=== PATIENT | female | born 2000 | race Caucasian/White ===

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

== ENCOUNTER 2020-02-20 15:42 | Emergency (ER) | payer OTHER, SELFPAY ==
[2020-02-20 15:45] VITALS: BP 135/86; PULSE 123; RESP 24; TEMP 37.8; O2SAT 100
--- NOTE | 2020-02-20 16:21 | CT_ITS ---
PROCEDURE: CT ABDOMEN PELVIS WO CON CLINICAL INDICATION: N/V/D ABD PAIN Generalized abdominal pain with nausea and vomiting COMPARISON: CT ABDOMEN PELVIS W CON from 12/28/2019 TECHNIQUE: Axial images obtained with sagittal and coronal reformats. All CT scans at the facility use one or more dose reduction, viz: automated exposure control, ma/kV adjustment per patient size (including targeted exams where dose is matched to indication, i.e. head), or iterative reconstruction technique. FINDINGS: LOWER THORAX: There is mild thickening of the pericardium anteriorly ABDOMEN & PELVIS: The liver, spleen, adrenal glands, pancreas, have an unremarkable appearance. There are nonobstructing punctate bilateral renal calculi. No intestinal obstruction or free air. Unremarkable appendix. There is an IUD in place. There is a small amount of fluid in the pelvis There is some mild thickening of the transverse and descending colon with minimal haziness of the pericolic fat in the left pericolic gutter which could be due to mild colitis. No intestinal obstruction or free air. There are few scattered small mesenteric lymph nodes which are nonspecific. There is a tiny umbilical hernia containing fat. IMPRESSION: 1. Nonobstructing bilateral renal calculi. 2. Possible colitis. There is a small amount of fluid in the pelvis nonspecific Dictated by: Elvis Gates MD 02/20/2020 17:36 Electronically signed by Elvis Gates MD in [place] 02/20/2020 17:36
[2020-02-20 16:38] LABS: Microscopic, Urine URINE MICROSCOPIC (MICROSCOPIC)
[2020-02-20 16:41] LABS: Appearance,Urine CLEAR (Clear); Bilirubin,Urine Negative (Negative); Blood, Urine 2+ (Negative); Color,Urine YELLOW (Yellow); Glucose,Urine (UA) Negative (Negative); Ketones,Urine Negative (Negative); Leukocyte Esterase,Urine Negative (Negative); Nitrate,Urine Negative (Negative); Protein,Urine TRACE (Negative); Specific Gravity, Urine 1.025 (1.005-1.030); Urobilinogen,Urine 0.2 EU/dl (0.2)
[2020-02-20 16:44] LABS: Basophils % 0.5 % (0.1-2.0); Eosinophils # 0.1 K/mm3 (0.0-0.4); Eosinophils % 0.8 % (0.1-12.0); Hematocrit 44.4 % (37.0-47.0); Hemoglobin 15.6 g/dL (12.2-16.2); Lymphocytes # 1.8 K/mm3 (0.7-4.5); Lymphocytes % 27.7 % (10-50); Mean Corpuscular HGB Conc 35.1 g/dL (31.8-35.4); Mean Corpuscular Hemoglobin 31.1 pg (27.0-31.2); Mean Corpuscular Volume 88.5 fl (81-99); Mean Platelet Volume 7.6 fl (7.4-10.4); Monocytes # 0.6 K/mm3 (0.1-1.0); Monocytes % 9.7 % (1.7-9.3); Neutrophils % 61.3 % (37.0-80.0); Platelet Count 271 K/mm3 (142-424); Red Blood Count 5.02 M/mm3 (4.20-5.40); Red Cell Distribution Width 12.3 % (11.5-17.5); White Blood Count 6.5 K/mm3 (4.5-13.0)
[2020-02-20 16:47] LABS: Urine Pregnancy, HCG Qual. Negative (Negative)
[2020-02-20 16:48] LABS: Chloride 104 mmol/L (98-107)
[2020-02-20 16:49] LABS: Potassium 3.6 mmoL/L (3.5-5.1); Sodium 138 mmol/L (136-145)
[2020-02-20 16:51] LABS: Amylase 56 U/L (30-110); Blood Urea Nitrogen 6 mg/dl (7-17); Creatinine Clearance Estimated 142 mL/min (50-200); Estimated Glomerular Filt Rate 92 ml/min (>60); GFR (African American) 112 ML/MIN (>60)
[2020-02-20 16:52] LABS: Alanine Aminotransferase 25 U/L (12-78); Albumin/Globulin Ratio 1.3 (1.1-1.8); Alkaline Phosphatase 101 U/L (38-126); Anion Gap 10.6 mEq/L (5-15); Aspartate Amino Transferase 26 U/L (14-36); Bilirubin,Total 0.5 mg/dl (0.2-1.3); Calcium 9.4 mg/dl (8.4-10.2); Carbon Dioxide 27 mmol/L (22.0-30.0); Glucose 90 mg/dl (74-100); Lipase 40 U/L (23-300)
--- NOTE | 2020-02-20 16:59 | PC.NURSE ---
PT TO RAD
[2020-02-20 17:04] LABS: Bacteria,Urine Trace /lpf; WBC,Urine Occasional #/hpf (0-3)
--- NOTE | 2020-02-20 18:01 | HMH.EDNVD ---
ED Disposition Clinical Impression: Gastroenteritis, Colitis Disposition: Home, Self-Care Condition on Discharge: Good Instructions: DI for Nausea -- Adult, DI for Nausea -- Child, DI for Diarrhea and Traveler's Diarrhea -- Adult, DI for Diarrhea and Traveler's Diarrhea -- Child Prescriptions: Ciprofloxacin HCl [Cipro 500mg Tab] 500 mg PO BID 10 Days #20 tab Transmission Status: Pending to [facility] metroNIDAZOLE [Flagyl 500mg Tablet] 500 mg PO TID 10 Days #30 tab Transmission Status: Pending to [facility] 493 Ondansetron [Zofran 4mg ODT] 4 mg PO Q6 #20 tab.rapdis Transmission Status: Pending to [facility] Referrals: Poonam Reynoso PA [Primary Care Provider] - - Critical Care Critical Care Time: No Attestation: On 02/20/20, the high probability of a clinically significant, sudden or life threatening deterioration of the following system(s) required my full and direct attention, intervention and personal management. The time I documented below is in addition to time spent performing reported procedures but includes the following listed in this critical care notation. Medical Decision Making - Medical Records Medical records reviewed: Yes: I reviewed the patient's medical records. - Walt Inquiry Pt receiving controlled substance: No Vital Signs: 02/20/20 15:45 Temperature 100.0 F H Temperature Source Oral Pulse Rate [Right Radial] 123 H Respiratory Rate 24 Blood Pressure [Right Arm] 135/86 Blood Pressure Mean [Right Arm] 102 Blood Pressure Source [Right Arm] Automatic Cuff Blood Pressure Position [Right Arm] Sitting 02 Sat by Pulse Oximetry 100 Oxygen Delivery Method Room Air - Lab Data Lab results reviewed: Yes: I reviewed the patient's lab results. Lab Results 02/20/20 16:10: Urine Color Yellow, Urine Appearance Clear, Urine pH 6.0, Ur Specific [place] 1.025, Urine Protein Trace, Urine Glucose (UA) Negative, Urine Ketones Negative, Urine Blood 2+, Urine Nitrate Negative, Urine Bilirubin Negative, Urine Urobilinogen 0.2, Ur Leukocyte Esterase Negative, Urine WBC Occasional, Ur Squamous Epith Cells 3-5, Urine Bacteria Trace 02/20/20 16:10: Urine HCG, Qual Negative 02/20/20 16:30: WBC 6.5, RBC 5.02, Hgb 15.6, Hct 44.4, MCV 88.5, MCH 31.1, MCHC 35.1, RDW 12.3, Plt Count 271, MPV 7.6, Neut % (Auto) 61.3, Lymph % (Auto) 27.7, [place] % (Auto) 9.7 H, Eos % (Auto) 0.8, Baso % (Auto) 0.5, Neut # (Auto) 4.0, Lymph # (Auto) 1.8, [place] # (Auto) 0.6, Eos # (Auto) 0.1, Baso # (Auto) 0.0 02/20/20 16:30: Sodium 138, Potassium 3.6, Chloride 104, Carbon Dioxide 27, Anion Gap 10.6, BUN 6 L, Creatinine 0.80, Estimated Creat Clear 142, Estimated GFR 92, Est GFR ( Amer) 112, Glucose 90, Calcium 9.4, Total Bilirubin 0.5, AST 26, ALT 25, Alkaline Phosphatase 101, Total Protein 7.0, Albumin 4.0, Globulin 3.0, Albumin/Globulin Ratio 1.3, Amylase 56, Lipase 40 Result diagrams: 02/20/20 16:30 02/20/20 16:30 Orders (Tests/Meds): ED MEDICATIONS Discontinued Medications Generic Name Dose Route Start Last Admin Trade Name Freq PRN Reason Stop Dose Admin Sodium Chloride 1,000 mls @ 999 mls/hr 02/20/20 16:22 02/20/20 16:34 Sod Chlor 0.9% 1000ml Bag IV 02/20/20 17:22 999 mls/hr .Q1H1M ONE Administration Ondansetron HCl 4 mg 02/20/20 17:34 02/20/20 17:37 Zofran 4mg/2ml Vial IV 02/20/20 17:35 4 mg ONCE ONE Administration - CT Data CT Scan: Abdomen, Pelvis Time Received: 18:[address] Reviewed: Yes: I have viewed the radiologist's interpretation Preliminary Findings: Abnormal (Mild colitis) Nausea/Vomiting/Diarrhea HPI - General Chief complaint: Nausea/Vomiting/Diarrhea Stated complaint: Fever,Nausa,vomiting body pains Time Seen by Provider: 02/20/20 18:01 Mode of Arrival: Ambulatory Source of Information: Patient Limitations: No Limitations Description of Symptoms (Recalled from ER Triage Doc. by RN): PT SENT TO ED FROM [facility]
[2020-02-20 18:29] VITALS: BP 118/78; PULSE 102; RESP 20; TEMP 37.8; O2SAT 100
== END 2020-02-20 18:29 | disposition home or self-care (01) ==
PROVIDERS: Emergency Provider Family Medicine; PCP Physician Assistant
DX: K52.9 Noninfective gastroenteritis and colitis, unspecified (principal); F33.1 Major depressive disorder, recurrent, moderate; M79.7 Fibromyalgia; Z79.899 Other long term (current) drug therapy
CPT/HCPCS: 74176; 80053; 81001; 81025; 82150; 83690; 85025; 96365; 96375; 99283; J2405

== ENCOUNTER → 2020-03-18 20:00 | Outpatient (CLI) | payer OTHER, SELFPAY ==
[2020-03-19 09:55] LABS: Adenovirus F 40/41, stool Not Detected (NotDetected); Astrovirus Not Detected (NotDetected); Campylobacter Not Detected (NotDetected); Cryptosporidium Not Detected (NotDetected); Cyclospora Cayetanesis Not Detected (NotDetected); Entamoeba histolytica Not Detected (NotDetected); Enteroaggregative E coli Not Detected (NotDetected); Enteropathogenic E coli Not Detected (NotDetected); Enterotoxigenic E coli Not Detected (NotDetected); Giardia lamblia Not Detected (NotDetected); Norovirus Not Detected (NotDetected); Plesimonas Shigalloides, PCR Not Detected (NotDetected); Rotavirus A Not Detected (NotDetected); Sapovirus Not Detected (NotDetected); Shiga-like toxin E coli Not Detected (NotDetected); Shigella Enterovasive E coli Not Detected (NotDetected); Vibrio Cholerae Not Detected (NotDetected); Vibrio, PCR Not Detected (NotDetected); Yersinia Entercolitica, PCR Not Detected (NotDetected)
[2020-03-19 13:55] LABS: Occult Blood,Stool Positive (Negative)
[2020-03-19 17:52] LABS: Clostridium Difficile A/B, PCR Detected (NotDetected)
[2020-03-19 17:53] LABS: Salmonella, PCR Detected (NotDetected)
== END ==
PROVIDERS: Visit Provider Physician Assistant
DX: R19.7 Diarrhea, unspecified (principal); A04.72 Enterocolitis due to Clostridium difficile, not specified as recurrent; K92.1 Melena; A02.0 Salmonella enteritis
CPT/HCPCS: 82272; 87177; 87507; G0328

== ENCOUNTER 2020-05-11 09:03 | Emergency (ER) | payer OTHER, SELFPAY ==
[2020-05-11 09:14] VITALS: BP 141/93; PULSE 101; RESP 18; O2SAT 100; BMI 30.9
--- NOTE | 2020-05-11 09:24 | HMH.EDUTC ---
[facility] [place] Clinical Impression: UTI (urinary tract infection) Qualifiers: Urinary tract infection type: acute cystitis Hematuria presence: with hematuria Qualified Code(s): N30.01 - Acute cystitis with hematuria Disposition: Home, Self-Care Condition on Discharge: Good Instructions: DI for Urinary Tract Infection (UTI) Additional Instructions: Follow up with PCP for culture results and referral to urology Prescriptions: Ciprofloxacin HCl [Cipro 500mg Tab] 500 mg PO BID #10 tab Transmission Status: Received by [facility] Phenazopyridine HCl [Pyridium 200mg Tablet] 200 pow PO TID #6 tab Transmission Status: Received by [facility] Referrals: Poonam Reynoso PA [Primary Care Provider] - Time of Disposition: 10:13 Medical Decision Making - Walt Inquiry Pt receiving controlled substance: No Vital Signs: 05/11/20 09:14 Pulse Rate [Radial] 101 H Respiratory Rate 18 Blood Pressure [Right Arm] 141/93 H Blood Pressure Mean [Right Arm] 109 Blood Pressure Source [Right Arm] Automatic Cuff Blood Pressure Position [Right Arm] Sitting 02 Sat by Pulse Oximetry 100 Oxygen Delivery Method Room Air - Lab Data Lab results reviewed: Yes: I reviewed the patient's lab results. Orders (Tests/Meds): ED MEDICATIONS Discontinued Medications Generic Name Dose Route Start Last Admin Trade Name Francine PRN Reason Stop Dose Admin Ketorolac Tromethamine 60 mg 05/11/20 09:30 05/11/20 09:30 Toradol 60mg/2ml Vial IM 05/11/20 09:31 60 mg ONCE ONE Administration Medical Decision Narrative: Discharge delayed because patient gave second sample to be sent for culture [facility] - General Stated complaint: lower bck pain nausa Time Seen by Provider: 05/11/20 09:24 Mode of Arrival: Ambulatory Source of Information: Patient Limitations: No Limitations Description of Symptoms (Recalled from Triage Doc. by RN): lower back pain since this morning. Think it is her kidneys. HEENT Symptoms (Recalled from RN notes): No Resp Symptoms (Recalled from RN notes): No Skin Symptoms (Recalled from RN notes): No MS Symptoms (Recalled from RN notes): No Functional Status (Recalled from RN notes): wnl - History of Present Illness Provider Complaint: Woke up this am with severe bilateral flank pain, nausea. No fever. Has urinary frequency, dysuria, and small volumes dark cloudy urine. No history of kidney stone. No history of pyelonephritis. Has taken Ibuprofen with little relief. Onset (ago): hour(s) (4) Location: back, abdomen, pelvis Radiation: abdomen Severity: moderate Severity scale (1-10): 7 Quality: constant Consistency: constant Relieving factors: none Exacerbating factors: none Associated symptoms: denies other symptoms Treatments prior to arrival: NSAID - Related Data Previous Rx's Medication Instructions Recorded amitriptyline 25 mg tablet 25 mg PO QHS #90 tab 02/05/20 duloxetine 60 mg capsule,delayed 60 mg PO DAILY #90 cap 03/12/20 release Bifidobacterium infantis 4 mg 4 mg PO QHS #30 cap 03/20/20 capsule promethazine 12.5 mg tablet 12.5 mg PO Q6H PRN #40 tab 03/20/20 sulfamethoxazole 800 1 tab PO BID 10 Days #20 tab 03/20/20 mg-trimethoprim 160 mg tablet vancomycin 125 mg capsule 125 mg PO QID #40 cap 03/20/20 fidaxomicin 200 mg tablet 200 mg PO Q12H 10 Days #20 tab 03/27/20 Ciprofloxacin HCl [Cipro 500mg 500 mg PO BID #10 tab 05/11/20 Tab] Phenazopyridine HCl [Pyridium 200 pow PO TID #6 tab 05/11/20 200mg Tablet] Allergies Allergy/AdvReac Type Severity Reaction Status Date / Time No Known Allergies Allergy Verified 03/18/20 12:55 - Worker's Comp Is this a Worker's Comp case?: No [facility] History - Hepatitis A Screen Drug use history?: No High risk sexual behaviors?: No History of sexually transmitted infection?: No Currently employed?: No Childcare worker?: No Do you have indoor plumbing?: Yes Do you have electricity?: Ye
[2020-05-11 10:21] VITALS: BP 141/93; PULSE 101; RESP 18; TEMP 36.7; O2SAT 100
[2020-05-11 10:45] LABS: Apearance,Urine Clear (Clear); Bilirubin,Urine 2+ (Negative); Blood, Urine 3+ (Negative); Color,Urine Yellow (Yellow); Glucose,Urine (UA) Negative (Negative); Ketones,Urine TRACE (Negative); Protein,Urine 1+ (Negative); UTC Leukocyte Esterase,Urine Negative (Negative); UTC Nitrate,Urine Negative (Negative); Urobilinogen,Urine 0.2 EU/dl (0.2)
== END 2020-05-11 10:22 | disposition home or self-care (01) ==
PROVIDERS: Emergency Provider Physician Assistant; PCP Physician Assistant
DX: N30.01 Acute cystitis with hematuria (principal); M79.7 Fibromyalgia; F33.1 Major depressive disorder, recurrent, moderate
CPT/HCPCS: 81003; 87086; 96372; 99202

== ENCOUNTER → 2020-06-08 12:06 | Outpatient (CLI) | payer OTHER, SELFPAY ==
[2020-06-08 14:05] LABS: Coronavirus 19 IgG Antibody Negative (Negative); Coronavirus 19 IgM Antibody Negative (Negative)
== END ==
PROVIDERS: Visit Provider Urology
DX: Z01.818 Encounter for other preprocedural examination (principal); N39.0 Urinary tract infection, site not specified; R31.0 Gross hematuria
CPT/HCPCS: 36415; 86328

== ENCOUNTER 2020-06-10 09:12 | Day surgery (SDC) | payer OTHER, SELFPAY ==
[2020-06-07 16:03] VITALS: BMI 30.4
[2020-06-10] VITALS (10 sets, daily range): BP systolic 99–125; BP diastolic 60–78; PULSE 99–113; RESP 12–16; TEMP 36.7–43; O2SAT 90–100
[2020-06-10 09:53] LABS: Urine Pregnancy, HCG Qual. Negative (Negative)
--- NOTE | 2020-06-10 10:38 | P.PN_ITS ---
[facility] Anesthesia Checklist - Structural Data Admitted From: Home Planned Operative Procedure/s: cysto Consent for Planned Operative Procedure(s) Verified: Yes - Additional verifications Hx Blood Transfusions: No Blood Transfusion Reaction: No - Airway Assessment C-Spine Mobility Assessed: Yes TMJ Mobility Assessed: Yes Dentition: Good Dentition - Neurological Assessment Level of Consciousness: Awake, Alert, Appropriate - Anesthesia Plan Anesthesia Risk discussed: Yes Anesthesia Plan: Verified ASA Class: I Anesthesia Type: General [facility] History I have reviewed the patient's past medical history: Yes Medical History: Reports:: Anxiety, Depression, Ulcer Denies:: Cancer, Diabetes Mellitus Type 1, Diabetes Mellitus Type 2, MRSA, Seizures *Have you ever received a pneumonia vaccine?: No *Have you received a flu vaccine this season?: No Other Medical History: Reports: Anemia, Fibromyalgia. Denies: Blood Transfusion Reaction Anesthesia experience/problems:: none Other Surgeries: Yes: No Previous Surgery Amputation: No Fractures: No - *Social History Last grade of school completed: High school graduate Smoking Status: Never smoker Alcohol Intake: never Substance Use Type: denies use *Occupational Status:: student Housing: house Household Members: family *Travel in the last 8 weeks: None - Psychiatric History Pschychiatric History:: Reports:: Anxiety, Depression Family Hx:: Cancer, Hyperlipidemia, Hypertension, Thyroid Disorder
--- NOTE | 2020-06-10 11:49 | HMH.OPNOTE ---
Date of procedure: 06/10/20 Pre-op Diagnosis:: Urinary frequency, recurrent urinary tract infections, microhematuria Post-op Diagnosis:: Same as preop Procedure performed:: Cystoscopy with hydrodistention of the bladder Surgeon:: Keith Rizvi MD FERMENTATION OPERATOR:: Rubio Vidales Anesthesia: GETA Estimated blood loss (mL): 0 Clinical Note:: 20-year-old white female with history of fibromyalgia complaints of urinary frequency, back pain and recurrent urinary tract infections. She also has had some microscopic hematuria. Operative findings:: Bladder was visually normal on evaluation. The bladder had a normal bladder capacity with 700 cc under anesthesia. Mild petechial hemorrhages were noted after bladder dilation. Operative note:: Patient taken to the operating room after informed consent was obtained. He was placed on the operating table in the supine position and general anesthesia administered. Preoperative antibiotics administered. She was then placed into the dorsal lithotomy position symptoms in the standard surgical fashion. The 22 Indonesian scope passed into the urethra and into the bladder without difficulty. The bladder was examined in a systematic fashion. There is no evidence of mucosal normalities, stones, trabeculation or diverticula. Ureteral orifices were in their normal anatomic position and clear efflux of urine was noted. The water at the appropriate height for hydrodistention water was allowed to flow into the bladder under gravity. When the flow showed resistance the water was stopped and the bladder emptied. 600 cc removed noted upon emptying the bladder. Upon looking back into the bladder small amount of petechial hemorrhages were noted at the bladder base and the trigonal areas. Bladder was distended again in the after filling this time was noted to be over 700 cc in the bladder upon emptying. When looking back into the bladder there is no worsening of the small petechial hemorrhages noted previously. Bladder was distended 1 more time and again over 700 cc obtained after filling. The scope removed and lidocaine jelly placed into the urethra with comfort measures. Patient tolerated the procedure well and discharged to recovery in stable condition. Condition: stable Disposition: PACU Specimens:: None Complications:: None
== END 2020-06-10 12:12 | disposition home or self-care (01) ==
LOC: OR 09:13
PROVIDERS: PCP Physician Assistant; Visit Provider Urology
PROC: 0TJB8ZZ Inspection of Bladder, Via Natural or Artificial Opening Endoscopic (ICD-10-PCS; CPT 52000; principal; 2020-06-10 11:00)
DX: R35.0 Frequency of micturition (principal); R31.29 Other microscopic hematuria; Z87.440 Personal history of urinary (tract) infections; F41.9 Anxiety disorder, unspecified; F32.9 Major depressive disorder, single episode, unspecified; D64.9 Anemia, unspecified; M79.7 Fibromyalgia; Z80.9 Family history of malignant neoplasm, unspecified; Z82.49 Family history of ischemic heart disease and other diseases of the circulatory system; Z83.438 Family history of other disorder of lipoprotein metabolism and other lipidemia; Z83.49 Family history of other endocrine, nutritional and metabolic diseases; Z79.899 Other long term (current) drug therapy
CPT/HCPCS: 52000; 81025; 96374; J2405

== ENCOUNTER 2022-01-29 19:21 | Emergency (ER) | payer OTHER, SELFPAY ==
[2022-01-29 19:29] VITALS: BP 127/90; PULSE 107; RESP 17; TEMP 37.2; O2SAT 97; BMI 33.3
[2022-01-29 19:46] LABS: Apearance,Urine Cloudy (Clear); Bilirubin,Urine Negative (Negative); Blood, Urine 3+ (Negative); Color,Urine Yellow (Yellow); Glucose,Urine (UA) Negative (Negative); Ketones,Urine Negative (Negative); Protein,Urine 1+ (Negative); Specific Gravity, Urine >= 1.030 (1.005-1.030)
[2022-01-29 19:47] LABS: UTC Leukocyte Esterase,Urine Negative (Negative); UTC Nitrate,Urine Negative (Negative); Urobilinogen,Urine 0.2 EU/dl (0.2)
[2022-01-29 19:55] VITALS: BP 127/90; PULSE 107; RESP 17; TEMP 37.2
--- NOTE | 2022-01-29 19:58 | HMH.EDUTC ---
[facility] [place] Disposition Clinical Impression: UTI (urinary tract infection) Qualifiers: Urinary tract infection type: site unspecified Hematuria presence: with hematuria Qualified Code(s): N39.0 - Urinary tract infection, site not specified Disposition: Home, Self-Care Condition on Discharge: Good Instructions: DI for Urinary Tract Infection (UTI), Phenazopyridine Additional Instructions: Drink plenty of fluids. Take tylenol or ibuprofen for pain or fever. Take the medications as directed. Follow up with your regular doctor. GO TO THE ER FOR ANY WORSENING SYMPTOMS The pyridium will make your urine turn orange, this is an expected side effect. It will stain your clothes if it comes into contact with them. We will culture the urine. That will tell what bacteria is causing your infection and which antibiotics will treat it best. Sometimes the first antibiotic we prescribe turns out to not work against different bacteria. So, make sure you follow up within 3 days if you are not getting better. Prescriptions: Ondansetron [Zofran 4mg ODT] 4 mg PO Q8HP PRN #20 tab PRN Reason: Nausea Transmission Status: Pending to [facility] Nitrofurantoin Monohyd/M-Cryst [Macrobid 100 mg Capsule] 100 mg PO BID 5 Days #10 cap Transmission Status: Pending to [facility] Phenazopyridine HCl [Pyridium 200mg Tablet] 200 pow PO TID #6 tab Transmission Status: Pending to [facility] Referrals: Poonam Reynoso PA [Primary Care Provider] - Time of Disposition: 20:00 Medical Decision Making - Medical Records Medical records reviewed: No: I reviewed the patient's medical records. - Walt Inquiry Pt receiving controlled substance: No Vital Signs: 01/29/22 19:29 01/29/22 19:55 Temperature 99.0 F 99.0 F Temperature Source Oral Oral Pulse Rate 107 H Pulse Rate [Left Radial] 107 H Respiratory Rate 17 17 Blood Pressure 127/90 Blood Pressure [Right Arm] 127/90 Blood Pressure Mean [Right Arm] 102 02 Sat by Pulse Oximetry 97 - Lab Data Lab results reviewed: Yes: I reviewed the patient's lab results. Lab Results 01/29/22 19:44: Urine Color Yellow, Urine Appearance Cloudy, Urine pH 6.0, Ur Specific [place] >= 1.030, Urine Protein 1+, Urine Glucose (UA) Negative, Urine Ketones Negative, Urine Blood 3+, Urine Nitrate Negative, Urine Bilirubin Negative, Urine Urobilinogen 0.2, Ur Leukocyte Esterase Negative Orders (Tests/Meds): ED MEDICATIONS Discontinued Medications Generic Name Dose Route Start Last Admin Trade Name Francine PRN Reason Stop Dose Admin Levofloxacin 500 mg 01/29/22 19:57 01/29/22 19:59 Levofloxacin 500mg Tab PO 01/29/22 19:58 500 mg ONCE ONE Administration Ondansetron HCl 4 mg 01/29/22 19:57 01/29/22 19:59 Ondansetron 4mg Odt SL 01/29/22 19:58 4 mg ONCE ONE Administration Phenazopyridine HCl 200 mg 01/29/22 19:57 01/29/22 20:03 Phenazopyridine 200mg Tablet PO 01/29/22 19:58 Not Given ONCE ONE Phenazopyridine HCl 200 mg 01/29/22 20:02 01/29/22 20:03 Phenazopyridine 200mg Tablet PO 01/29/22 20:03 200 mg ONCE ONE Administration ORDERS Category Date Time Status Urine Culture Stat Micro 01/29/22 19:44 Ordered [facility] [place] HPI - General Stated complaint: Possible kidney infection Time Seen by Provider: 01/29/22 19:59 Description of Symptoms (Recalled from Triage Doc. by RN): patient comes in today with complaints of lower back pain, patient thinks it may be a kidney infection. patient states she has had one when she was little. pain began today HEENT Symptoms (Recalled from RN notes): No Resp Symptoms (Recalled from RN notes): No Skin Symptoms (Recalled from RN notes): No MS Symptoms (Recalled from RN notes): No Functional Status (Recalled from RN notes): wnl - History of Present Illness Provider Complaint: She states that she has had low back pain that goes all across her lower back, but is worse o
== END 2022-01-29 20:03 | disposition home or self-care (01) ==
PROVIDERS: Emergency Provider Nurse Practitioner Family; PCP Physician Assistant
DX: N39.0 Urinary tract infection, site not specified (principal); R35.0 Frequency of micturition; M54.50 Low back pain, unspecified; R31.9 Hematuria, unspecified; R11.0 Nausea; M79.7 Fibromyalgia; L70.9 Acne, unspecified; J32.9 Chronic sinusitis, unspecified; F32.A Depression, unspecified; F43.10 Post-traumatic stress disorder, unspecified; F41.9 Anxiety disorder, unspecified; Z79.899 Other long term (current) drug therapy; Z88.2 Allergy status to sulfonamides; Z88.8 Allergy status to other drugs, medicaments and biological substances; Z80.9 Family history of malignant neoplasm, unspecified
CPT/HCPCS: 81003; 87086; 87088; 87186; 99213; G0463

== ENCOUNTER 2022-01-30 14:34 | Emergency (ER) | payer OTHER, SELFPAY ==
[2022-01-30] VITALS (7 sets, daily range): BP systolic 115–152; BP diastolic 73–90; PULSE 84–108; RESP 16–18; TEMP 36.6–36.9; O2SAT 98–99; BMI 33.3
--- NOTE | 2022-01-30 14:57 | HMH.EDGENADL ---
ED Disposition Clinical Impression: Pyelonephritis Disposition: Home, Self-Care Condition on Discharge: Good Instructions: DI for Nausea -- Adult, DI for Kidney Infection Additional Instructions: The entire course of antibiotics use the Zofran during the day for nausea and Phenergan at night as it would make you sleepy. Do not drive or operate heavy machinery on the Phenergan as it will make you sleepy and could cause harm. Prescriptions: Cefdinir [Omnicef 300mg Capsule] 300 mg PO BID 10 Days #20 cap Transmission Status: Pending to [facility] Promethazine HCl [Phenergan 25mg tab] 25 mg PO Q6H PRN 4 Days #16 tab PRN Reason: Nausea And Vomiting Transmission Status: Pending to [facility] Referrals: Poonam Reynoso PA [Primary Care Provider] - - Critical Care Critical Care Time: No Attestation: On 01/30/22, the high probability of a clinically significant, sudden or life threatening deterioration of the following system(s) required my full and direct attention, intervention and personal management. The time I documented below is in addition to time spent performing reported procedures but includes the following listed in this critical care notation. Medical Decision Making - Medical Records Medical records reviewed: Yes: I reviewed the patient's medical records. - Walt Inquiry Pt receiving controlled substance: No Vital Signs: 01/30/22 14:35 01/30/22 15:01 01/30/22 15:31 Temperature 98.5 F Temperature Source Oral Pulse Rate 100 H 103 H Pulse Rate [Right Brachial] 108 H Respiratory Rate 16 Blood Pressure 128/84 116/74 Blood Pressure [Right Arm] 152/89 H Blood Pressure Mean 98 88 Blood Pressure Mean [Right Arm] 110 Blood Pressure Source [Right Arm] Automatic Cuff 02 Sat by Pulse Oximetry 98 99 99 01/30/22 16:00 01/30/22 16:30 01/30/22 17:00 Temperature Temperature Source Pulse Rate 84 88 93 H Pulse Rate [Right Brachial] Respiratory Rate Blood Pressure 124/90 121/73 118/78 Blood Pressure [Right Arm] Blood Pressure Mean 100 92 93 Blood Pressure Mean [Right Arm] Blood Pressure Source [Right Arm] 02 Sat by Pulse Oximetry 98 99 98 - Lab Data Lab Results 01/30/22 14:52: Sodium 138, Potassium 3.8, Chloride 106, Carbon Dioxide 27, Anion Gap 8.8, BUN 12, Creatinine 0.80, Estimated Creat Clear 159, Estimated GFR 91, Est GFR ( Amer) 110, Glucose 127 H, Calcium 9.6 01/30/22 14:52: WBC 16.1 H, RBC 4.59, Hgb 13.9, Hct 41.4, MCV 90.2, MCH 30.3, MCHC 33.5, RDW 12.9, Plt Count 372, MPV 7.6, Neut % (Auto) 82.8 H, Lymph % (Auto) 11.2, [place] % (Auto) 4.7, Eos % (Auto) 0.6, Baso % (Auto) 0.6, Neut # (Auto) 13.3 H, Lymph # (Auto) 1.8, [place] # (Auto) 0.8, Eos # (Auto) 0.1, Baso # (Auto) 0.1, Total Counted 100, Neutrophils % (Manual) 81 H, Lymphocytes % (Manual) 15, Monocytes % (Manual) 4, Platelet Estimate Normal, RBC Morphology Normal Result diagrams: 01/30/22 14:52 01/30/22 14:52 Orders (Tests/Meds): ED MEDICATIONS Generic Name Dose Route Start Last Admin Trade Name Freq PRN Reason Stop Dose Admin Ceftriaxone Sodium 1 gm/ 50 mls @ 100 mls/hr 01/30/22 15:00 01/30/22 15:04 Sodium Chloride IV 02/13/22 14:59 100 mls/hr Q24H MAK Administration Sodium Chloride 10 ml 01/30/22 14:44 Sodium Chloride 0.9% 10ml Flush Syringe IV 03/01/22 14:43 NEEDED PRN Maintain IV Site Discontinued Medications Generic Name Dose Route Start Last Admin Trade Name Freq PRN Reason Stop Dose Admin Sodium Chloride 500 mls @ 999 mls/hr 01/30/22 15:00 01/30/22 14:56 Sod Chlor 0.9% 1000ml Bag IV 01/30/22 15:30 999 mls/hr .Q31M MAK Administration Ketorolac Tromethamine 15 mg 01/30/22 14:59 01/30/22 15:05 Ketorolac 30mg/Ml Vial IV 01/30/22 15:00 15 mg ONCE ONE Administration Ondansetron HCl 4 mg 01/30/22 14:43 01/30/22 14:54 Ondansetron 4mg/2ml Vial IV 01/30/22 14:44 4 mg ONCE ONE Administ
[2022-01-30 15:11] LABS: Chloride 106 mmol/L (98-107); Sodium 138 mmol/L (136-145)
[2022-01-30 15:14] LABS: Basophils # 0.1 K/mm3 (0-0.2); Basophils % 0.6 % (0.1-2.0); Blood Urea Nitrogen 12 mg/dl (7-17); Creatinine Clearance Estimated 159 mL/min (50-200); Eosinophils # 0.1 K/mm3 (0.0-0.4); Eosinophils % 0.6 % (0.1-12.0); Estimated Glomerular Filt Rate 91 ml/min (>60); GFR (African American) 110 ML/MIN (>60); Hematocrit 41.4 % (37.0-47.0); Hemoglobin 13.9 g/dL (12.2-16.2); Lymphocytes # 1.8 K/mm3 (0.7-4.5); Lymphocytes % 11.2 % (10-50); Mean Corpuscular HGB Conc 33.5 g/dL (31.8-35.4); Mean Corpuscular Hemoglobin 30.3 pg (27.0-31.2); Mean Corpuscular Volume 90.2 fl (81-99); Mean Platelet Volume 7.6 fl (7.4-10.4); Monocytes # 0.8 K/mm3 (0.1-1.0); Monocytes % 4.7 % (1.7-9.3); Neutrophils # 13.3 K/mm3 (1.8-7.8); Neutrophils % 82.8 % (37.0-80.0); Platelet Count 372 K/mm3 (142-424); Potassium 3.8 mmoL/L (3.5-5.1); Red Blood Count 4.59 M/mm3 (4.20-5.40); Red Cell Distribution Width 12.9 % (11.5-17.5); White Blood Count 16.1 K/mm3 (4.8-10.8)
[2022-01-30 15:15] LABS: Anion Gap 8.8 mEq/L (5-15); Calcium 9.6 mg/dl (8.4-10.2); Carbon Dioxide 27 mmol/L (22.0-30.0); Glucose 127 mg/dl (74-100)
[2022-01-30 15:20] LABS: MANUAL DIFFERENTIAL MANUAL DIFFERENTIAL (MANUAL DIFF)
--- NOTE | 2022-01-30 15:33 | PC.NURSE ---
pt updated on POC.
[2022-01-30 15:48] LABS: Lymphocytes % 15 % (10-50); Monocytes % 4 % (2-9); Neutrophils % 81 % (42-76); Total Cells Counted 100
[2022-01-30 15:49] LABS: Platelet Estimate Normal; RBC Morphology Normal
--- NOTE | 2022-01-30 17:13 | PC.NURSE ---
po challenge given.
== END 2022-01-30 17:58 | disposition home or self-care (01) ==
PROVIDERS: Student in an Organized Health Care Education/Training Program; Emergency Provider Emergency Medicine; PCP Physician Assistant
DX: N12 Tubulo-interstitial nephritis, not specified as acute or chronic (principal); Z88.2 Allergy status to sulfonamides; Z87.19 Personal history of other diseases of the digestive system; F41.9 Anxiety disorder, unspecified; F32.A Depression, unspecified
CPT/HCPCS: 80048; 85007; 85025; 96365; 96375; 99284; J0696; J2405

== ENCOUNTER → 2022-03-11 06:32 | Outpatient (CLI) | payer OTHER, SELFPAY ==
[2022-03-10 20:21] LABS: Adenovirus,PCR Not Detected (NotDetected); Coronavirus 229E Not Detected (NotDetected); Coronavirus NL63 Not Detected (NotDetected); Coronavirus OC43 Not Detected (NotDetected); Coronovirus HKU1,PCR Not Detected (NotDetected); Human Metapneumovirus Not Detected (NotDetected); Influenza A, PCR Not Detected (NotDetected); Influenza AH1, 2009 Not Detected (NotDetected); Influenza AH1, PCR Not Detected (NotDetected); Influenza AH3,PCR Not Detected (NotDetected); Influenza B, PCR Not Detected (NotDetected); Rhinovirus/Enterovirus Not Detected (NotDetected)
[2022-03-10 22:05] LABS: Bordetella Pertussis Not Detected (NotDetected); Chlamydophila Pneumoniae, PCR Not Detected (NotDetected); Coronavirus 19, PCR Not Detected (NotDetected); Mycoplasma Pneumoniae, PCR Not Detected (NotDetected); Parainfluenza 1, PCR Not Detected (NotDetected); Parainfluenza 2, PCR Not Detected (NotDetected); Parainfluenza 3, PCR Not Detected (NotDetected); Parainfluenza 4, PCR Not Detected (NotDetected); Respiratory Syncytial Virus Not Detected (NotDetected)
== END ==
PROVIDERS: PCP Physician Assistant; Visit Provider Physician Assistant
DX: Z20.822 Contact with and (suspected) exposure to COVID-19 (principal)
CPT/HCPCS: 87581; 87632; 87798; C9803; U0003; U0005

== ENCOUNTER → 2022-03-12 12:39 | Outpatient (CLI) | payer OTHER, SELFPAY ==
[2022-03-12 12:43] LABS: Microscopic, Urine URINE MICROSCOPIC (MICROSCOPIC)
[2022-03-12 13:54] LABS: Appearance,Urine CLEAR (Clear); Bilirubin,Urine Negative (Negative); Blood, Urine 1+ (Negative); Color,Urine YELLOW (Yellow); Glucose,Urine (UA) Negative (Negative); Ketones,Urine Negative (Negative); Leukocyte Esterase,Urine TRACE (Negative); Nitrate,Urine Negative (Negative); PH,Urine 5.5 (5.0-8.5); Protein,Urine Negative (Negative); Specific Gravity, Urine >= 1.030 (1.005-1.030); Urobilinogen,Urine 0.2 EU/dl (0.2)
[2022-03-12 16:17] LABS: RBC,Urine Occasional #/hpf (0-3)
== END ==
PROVIDERS: PCP Physician Assistant; Visit Provider Physician Assistant
DX: N39.0 Urinary tract infection, site not specified (principal); R69 Illness, unspecified; B96.4 Proteus (mirabilis) (morganii) as the cause of diseases classified elsewhere
CPT/HCPCS: 81001; 87086; 87088; 87186

== ENCOUNTER 2022-03-13 09:15 | Emergency (ER) | payer OTHER, SELFPAY ==
[2022-03-13 09:15] VITALS: BP 124/81; PULSE 76; RESP 17; TEMP 36.6; O2SAT 98; BMI 33.4
[2022-03-13 09:36] LABS: Apearance,Urine Clear (Clear); Bilirubin,Urine Negative (Negative); Blood, Urine Negative (Negative); Color,Urine Yellow (Yellow); Glucose,Urine (UA) Negative (Negative); Ketones,Urine Negative (Negative); PH,Urine 6.5 (5.0-8.5); Protein,Urine Negative (Negative); Specific Gravity, Urine 1.025 (1.005-1.030); Urobilinogen,Urine 0.2 EU/dl (0.2)
[2022-03-13 09:37] LABS: UTC Leukocyte Esterase,Urine Negative (Negative); UTC Nitrate,Urine Negative (Negative)
[2022-03-13 09:38] VITALS: BP 124/81; PULSE 76; RESP 17; TEMP 36.8; O2SAT 98
--- NOTE | 2022-03-13 09:46 | HMH.EDUTC ---
[facility] [place] Clinical Impression: Urinary frequency Disposition: Home, Self-Care Condition on Discharge: Good Additional Instructions: Make sure to follow up with your Family Doctor for the results of your Urine culture for further treatment and evaluation Limit your Caffeine this may help if you area drinking excess to make you go more often Keep a fluid diary this will help to see how much fluid you are drinking to see if this could be the reason you are urinating more frequently Return if needed Straight to ER if any life threatening symptoms Referrals: Poonam Reynoso PA [Primary Care Provider] - As needed Forms: Work/School Release Time of Disposition: 09:50 Medical Decision Making - Walt Inquiry Pt receiving controlled substance: No Walt was queried for this patient: No Vital Signs: 03/13/22 09:15 03/13/22 09:38 Temperature 98 F 98.3 F Temperature Source Oral Pulse Rate 76 Pulse Rate [Left Radial] 76 Respiratory Rate 17 17 Blood Pressure 124/81 Blood Pressure [Right Arm] 124/81 Blood Pressure Mean [Right Arm] 95 02 Sat by Pulse Oximetry 98 Oxygen Delivery Method Room Air Room Air - Lab Data Lab results reviewed: Yes: I reviewed the patient's lab results. Lab Results 03/13/22 09:18: Urine Color Yellow, Urine Appearance Clear, Urine pH 6.5, Ur Specific [place] 1.025, Urine Protein Negative, Urine Glucose (UA) Negative, Urine Ketones Negative, Urine Blood Negative, Urine Nitrate Negative, Urine Bilirubin Negative, Urine Urobilinogen 0.2, Ur Leukocyte Esterase Negative [facility] [place] HPI - General Stated complaint: possible kidney inf Time Seen by Provider: 03/13/22 09:20 Mode of Arrival: Ambulatory Source of Information: Patient Limitations: No Limitations Description of Symptoms (Recalled from Triage Doc. by RN): c/o kidney pain, need to pee all the time, nauseated and fatigue for 3 days. prone to kidney infections HEENT Symptoms (Recalled from RN notes): No Resp Symptoms (Recalled from RN notes): No Skin Symptoms (Recalled from RN notes): No MS Symptoms (Recalled from RN notes): No Functional Status (Recalled from RN notes): na - History of Present Illness Provider Complaint: Patient states that she has been having some urinary frequency and feeling like she has to go for a couple days States that she has had nausea on and off but not sure if it is related States that PCP done urine culture yesterday but not sure if it is back yet and she has been tired and achy for several days States that she is suppose to work the weekend and dont think she can with these symptoms - Related Data Previous Rx's Medication Instructions Recorded minocycline 100 mg tablet 100 mg PO BID #60 tab 11/04/21 amitriptyline 25 mg tablet See Rx Instructions .ROUTE 01/05/22 .COMPLEX #90 tab Ondansetron [Zofran 4mg ODT] 4 mg PO Q8HP PRN #20 tab 01/29/22 duloxetine 60 mg capsule,delayed 60 mg PO DAILY #90 cap 02/19/22 release clindamycin 1 %-benzoyl peroxide 5 1 applic TP BID #50 g 03/10/22 % topical gel Allergies Allergy/AdvReac Type Severity Reaction Status Date / Time sulfamethoxazole Allergy Verified 03/10/22 15:32 [From Bactrim] trimethoprim [From Bactrim] Allergy Verified 03/10/22 15:32 - Worker's Comp Is this a Worker's Comp case?: No [facility] History - Hepatitis A Screen Attestation statement:: This patient has been screened for Hepatitis A risk factors. I have reviewed the patient's past medical history: Yes Medical History: Reports:: Anxiety, Depression, Ulcer Denies:: Cancer, Diabetes Mellitus Type 1, Diabetes Mellitus Type 2, MRSA, Seizures Other Medical History: Reports: Anemia, Fibromyalgia. Denies: Blood Transfusion Reaction Other Surgeries: Yes: No Previous Surgery Amputation: No Fractures: No Comment: Bladder surgery; 2020 - Social History Smoking Status: Never smoker Alcohol Intake: current Alcohol Intake Frequency:: holidays/special occasions
[2022-03-13 09:53] VITALS: BP 124/81; PULSE 76; RESP 19; TEMP 36.8; O2SAT 98
== END 2022-03-13 09:52 | disposition home or self-care (01) ==
PROVIDERS: Emergency Provider Nurse Practitioner; PCP Physician Assistant
DX: R35.0 Frequency of micturition (principal); R39.15 Urgency of urination; M25.50 Pain in unspecified joint; N23 Unspecified renal colic; D64.9 Anemia, unspecified; R53.82 Chronic fatigue, unspecified; I10 Essential (primary) hypertension; L98.499 Non-pressure chronic ulcer of skin of other sites with unspecified severity; M79.7 Fibromyalgia; J32.9 Chronic sinusitis, unspecified; F32.A Depression, unspecified; F41.9 Anxiety disorder, unspecified; Z88.2 Allergy status to sulfonamides; Z88.8 Allergy status to other drugs, medicaments and biological substances; Z80.9 Family history of malignant neoplasm, unspecified
CPT/HCPCS: 81003; 99213; G0463

== ENCOUNTER 2022-03-25 21:14 | Emergency (ER) | payer OTHER, SELFPAY ==
[2022-03-25 21:16] VITALS: BP 130/74; RESP 16; TEMP 36.7; O2SAT 99; BMI 33.3
[2022-03-25 21:46] LABS: Microscopic, Urine URINE MICROSCOPIC (MICROSCOPIC)
[2022-03-25 21:48] LABS: Appearance,Urine CLEAR (Clear); Bilirubin,Urine Negative (Negative); Blood, Urine 3+ (Negative); Color,Urine YELLOW (Yellow); Glucose,Urine (UA) Negative (Negative); Ketones,Urine Negative (Negative); Leukocyte Esterase,Urine Negative (Negative); Nitrate,Urine Negative (Negative); Protein,Urine TRACE (Negative); Specific Gravity, Urine >= 1.030 (1.005-1.030); Urobilinogen,Urine 0.2 EU/dl (0.2)
[2022-03-25 22:07] LABS: RBC,Urine 50-100 #/hpf (0-3)
[2022-03-25 22:08] LABS: Bacteria,Urine 3+ /lpf; Mucus,Urine 2+ /lpf
--- NOTE | 2022-03-25 22:19 | HMH.EDGENADL ---
ED Disposition Clinical Impression: Interstitial cystitis (chronic) with hematuria Disposition: Home, Self-Care Condition on Discharge: Good Instructions: DI for Urinary Tract Infection (UTI), DI for Urinary Tract Infection in Children Additional Instructions: Take macrobid as prescribed daily until follow up with urology. Follow this website ([email or web address]) to schedule appointment with urology, they will be able to follow you for further definitive management. Follow-up with your primary care provider regarding this visit to the emergency department and further refills of Macrobid as needed. Prescriptions: Nitrofurantoin Monohyd/M-Cryst [Macrobid 100 mg Capsule] 100 mg PO DAILY #30 cap Transmission Status: Received by [facility] #[id number] Nitrofurantoin Monohyd/M-Cryst [Macrobid 100 mg Capsule] 100 mg PO DAILY #30 cap Transmission Status: Received by [facility] Cefdinir [Omnicef 300mg Capsule] 300 mg PO BID #20 cap Transmission Status: Received by [facility] Referrals: Poonam Reynoso PA [Primary Care Provider] - - Critical Care Critical Care Time: No Attestation: On 03/25/22, the high probability of a clinically significant, sudden or life threatening deterioration of the following system(s) required my full and direct attention, intervention and personal management. The time I documented below is in addition to time spent performing reported procedures but includes the following listed in this critical care notation. Medical Decision Making - Walt Inquiry Pt receiving controlled substance: No Vital Signs: 03/25/22 21:16 03/25/22 22:51 03/25/22 23:00 Temperature 98.1 F Temperature Source Oral Pulse Rate 95 H 90 Respiratory Rate 16 Blood Pressure 135/81 132/81 Blood Pressure [Right Arm] 130/74 Blood Pressure Mean 92 Blood Pressure Mean [Right Arm] 92 Blood Pressure Source [Right Arm] Automatic Cuff Blood Pressure Position [Right Arm] Sitting 02 Sat by Pulse Oximetry 99 97 100 Oxygen Delivery Method Room Air Room Air Room Air 03/25/22 23:30 03/26/22 00:01 03/26/22 00:30 Temperature Temperature Source Pulse Rate 94 H 101 H 88 Respiratory Rate Blood Pressure 129/82 113/67 125/80 Blood Pressure [Right Arm] Blood Pressure Mean Blood Pressure Mean [Right Arm] Blood Pressure Source [Right Arm] Blood Pressure Position [Right Arm] 02 Sat by Pulse Oximetry 100 100 100 Oxygen Delivery Method Room Air Room Air Room Air 03/26/22 01:31 Temperature 98.1 F Temperature Source Pulse Rate 82 Respiratory Rate 18 Blood Pressure 132/86 Blood Pressure [Right Arm] Blood Pressure Mean Blood Pressure Mean [Right Arm] Blood Pressure Source [Right Arm] Blood Pressure Position [Right Arm] 02 Sat by Pulse Oximetry Oxygen Delivery Method - Lab Data Lab Results 03/25/22 21:24: Urine Color Yellow, Urine Appearance Clear, Urine pH 5.0, Ur Specific [place] >= 1.030, Urine Protein Trace, Urine Glucose (UA) Negative, Urine Ketones Negative, Urine Blood 3+, Urine Nitrate Negative, Urine Bilirubin Negative, Urine Urobilinogen 0.2, Ur Leukocyte Esterase Negative, Urine RBC 50-100, Urine WBC 3-5, Ur Squamous Epith Cells 5-10, Urine Bacteria 3+, Urine Mucus 2+ 03/25/22 22:53: WBC 16.3 H, RBC 4.85, Hgb 14.2, Hct 43.5, MCV 89.6, MCH 29.3, MCHC 32.7, RDW 12.6, Plt Count 452 H, MPV 7.7, Neut % (Auto) 70.5, Lymph % (Auto) 21.2, [place] % (Auto) 4.9, Eos % (Auto) 2.5, Baso % (Auto) 0.8, Neut # (Auto) 11.5 H, Lymph # (Auto) 3.5, [place] # (Auto) 0.8, Eos # (Auto) 0.4, Baso # (Auto) 0.1, Total Counted 100, Neutrophils % (Manual) 75, Lymphocytes % (Manual) 20, Monocytes % (Manual) 5, Platelet Estimate Normal, RBC Morphology Normal 03/25/22 22:53: Sodium 140, Potassium 4.0, Chloride 105, Carbon Dioxide 27, Anion Gap 12.0, BUN 13, Creatinine 0.80, Estimated Creat Clear 159, Estimated GFR 91, Est GFR ( Amer) 110, Glucose 87,
--- NOTE | 2022-03-25 22:22 | CT_ITS ---
PROCEDURE INFORMATION: Exam: CT Abdomen And Pelvis With Contrast Exam date and time: 03/25/2022 11:41 PM Age: 21 years old Clinical indication: Condition or disease; Kidney or ureter condition; Other: Chronic UTI; Prior surgery; Surgery type: Cystoscopy x1 year ago; Additional info: Chronic UTI, rule out renal abscess TECHNIQUE: Imaging protocol: Computed tomography of the abdomen and pelvis with contrast. Radiation optimization: All CT scans at this facility use at least one of these dose optimization techniques: automated exposure control; mA and/or kV adjustment per patient size (includes targeted exams where dose is matched to clinical indication); or iterative reconstruction. Contrast material: ISOVUE; Contrast volume: 75 ml; Contrast route: IV; COMPARISON: CT ABDOMEN PELVIS WO CON 02/20/2020 4:57 PM FINDINGS: Liver: Fatty liver. No suspicious liver lesions. Gallbladder and bile ducts: Unremarkable. Pancreas: Unremarkable. Spleen: Unremarkable. Adrenal glands: Unremarkable. Kidneys and ureters: Punctate (2-3 mm) non-obstructing stones in the bilateral renal pelvises. No hydronephrosis. Bilateral kidneys enhance symmetrically and homogeneously without focal defect. Stomach and bowel: Unremarkable. Appendix: Appendix is visualized and is normal. Intraperitoneal space: No free fluid. No pneumoperitoneum. Vasculature: Unremarkable. Lymph nodes: Unremarkable. Urinary bladder: Bladder is decompressed, limiting evaluation. Reproductive: Right ovary contains a corpus luteum. Bones/joints: No acute osseous abnormality. Soft tissues: Unremarkable. IMPRESSION: 1. No acute findings in the abdomen or pelvis. No evidence of renal abscess. 2. Punctate (2-3 mm) non-obstructing renal stones in the bilateral kidneys. 3. Fatty liver.
--- NOTE | 2022-03-25 22:38 | PC.NURSE ---
IV INITIATED TO LAC. PT TOLERATED WELL. DISCUSSED WITH PATIENT PLAN TO OBTAIN IMAGING DUE TO ONGOING PROBLEMS WITH UTI. PT IN AGREEMENT WITH PLAN. PT UPDATED WITH EXPECTED WAIT TIMES. FAMILY REMAINS AT BEDSIDE. WARM BLANKET PROVIDED.
[2022-03-25 22:51] VITALS: BP 135/81; PULSE 95; O2SAT 97
[2022-03-25 23:00] VITALS: BP 132/81; PULSE 90; O2SAT 100
[2022-03-25 23:07] LABS: Basophils # 0.1 K/mm3 (0-0.2); Basophils % 0.8 % (0.1-2.0); Eosinophils # 0.4 K/mm3 (0.0-0.4); Eosinophils % 2.5 % (0.1-12.0); Hematocrit 43.5 % (37.0-47.0); Hemoglobin 14.2 g/dL (12.2-16.2); Lymphocytes # 3.5 K/mm3 (0.7-4.5); Lymphocytes % 21.2 % (10-50); Mean Corpuscular HGB Conc 32.7 g/dL (31.8-35.4); Mean Corpuscular Hemoglobin 29.3 pg (27.0-31.2); Mean Corpuscular Volume 89.6 fl (81-99); Mean Platelet Volume 7.7 fl (7.4-10.4); Monocytes # 0.8 K/mm3 (0.1-1.0); Monocytes % 4.9 % (1.7-9.3); Neutrophils # 11.5 K/mm3 (1.8-7.8); Neutrophils % 70.5 % (37.0-80.0); Platelet Count 452 K/mm3 (142-424); Red Blood Count 4.85 M/mm3 (4.20-5.40); Red Cell Distribution Width 12.6 % (11.5-17.5); White Blood Count 16.3 K/mm3 (4.8-10.8)
[2022-03-25 23:08] LABS: Chloride 105 mmol/L (98-107); Sodium 140 mmol/L (136-145)
[2022-03-25 23:09] LABS: MANUAL DIFFERENTIAL MANUAL DIFFERENTIAL (MANUAL DIFF)
--- NOTE | 2022-03-25 23:09 | PC.NURSE ---
would like pt to provide another clean catch urine sample d/t initial having several epithelial cells on micro. Pt educated on how to collect a clean catch and 3 wipes given to pt. RESIDENTIAL SALES REPRESENTATIVE Delphine notified would like to order a 2nd urine sample
[2022-03-25 23:10] LABS: Blood Urea Nitrogen 13 mg/dl (7-17); Creatinine Clearance Estimated 159 mL/min (50-200); Estimated Glomerular Filt Rate 91 ml/min (>60); GFR (African American) 110 ML/MIN (>60)
[2022-03-25 23:11] LABS: Alanine Aminotransferase 17 U/L (12-78); Albumin Level 4.7 g/dl (3.5-5.0); Albumin/Globulin Ratio 1.3 (1.1-1.8); Alkaline Phosphatase 125 U/L (38-126); Aspartate Amino Transferase 21 U/L (14-36); Calcium 10.1 mg/dl (8.4-10.2); Carbon Dioxide 27 mmol/L (22.0-30.0); Globulin 3.5 g/dL (1.3-3.2); Glucose 87 mg/dl (74-100); Lipase 81 U/L (23-300); Total Protein,Serum 8.2 g/dl (6.3-8.2)
[2022-03-25 23:13] LABS: Bilirubin,Total < 0.1 mg/dl (0.2-1.3)
[2022-03-25 23:22] LABS: Microscopic, Urine URINE MICROSCOPIC (MICROSCOPIC)
[2022-03-25 23:23] LABS: Appearance,Urine CLEAR (Clear); Bilirubin,Urine Negative (Negative); Blood, Urine 3+ (Negative); Color,Urine YELLOW (Yellow); Glucose,Urine (UA) Negative (Negative); Ketones,Urine Negative (Negative); Leukocyte Esterase,Urine Negative (Negative); Nitrate,Urine Negative (Negative); PH,Urine 5.5 (5.0-8.5); Protein,Urine Negative (Negative); Specific Gravity, Urine >= 1.030 (1.005-1.030); Urobilinogen,Urine 0.2 EU/dl (0.2)
[2022-03-25 23:23] LABS: Lymphocytes % 20 % (10-50); Monocytes % 5 % (2-9); Neutrophils % 75 % (42-76); Total Cells Counted 100
[2022-03-25 23:24] LABS: Platelet Estimate Normal; RBC Morphology Normal
[2022-03-25 23:30] VITALS: BP 129/82; PULSE 94; O2SAT 100
[2022-03-25 23:42] LABS: HCG,Quantitative < 2 mIU/ml (0-5.42)
[2022-03-25 23:43] LABS: Bacteria,Urine 2+ /lpf; Mucus,Urine 1+ /lpf; RBC,Urine TNTC #/hpf (0-3)
--- NOTE | 2022-03-25 23:44 | PC.NURSE ---
Pt going to scan at this time
--- NOTE | 2022-03-25 23:50 | PC.NURSE ---
Pt back in room at this time
[2022-03-26 00:01] VITALS: BP 113/67; PULSE 101; O2SAT 100
--- NOTE | 2022-03-26 00:17 | PC.NURSE ---
PT MADE AWARE THAT RADIOLOGY REPORTS ARE STILL PENDING. FAMILY REMAINS AT BEDSIDE. WCM.
[2022-03-26 00:30] VITALS: BP 125/80; PULSE 88; O2SAT 100
[2022-03-26 01:31] VITALS: BP 132/86; PULSE 82; RESP 18; TEMP 36.7; O2SAT 97
== END 2022-03-26 01:32 | disposition home or self-care (01) ==
PROVIDERS: Emergency Provider Emergency Medicine; PCP Physician Assistant
DX: N30.11 Interstitial cystitis (chronic) with hematuria (principal); N20.0 Calculus of kidney
CPT/HCPCS: 74177; 80053; 81001; 83690; 84702; 85007; 85025; 87086; 96361; 96374; 99284; Q9967

== ENCOUNTER → 2022-03-26 06:27 | Outpatient (CLI) | payer OTHER, SELFPAY | PROVIDERS: PCP Physician Assistant; Visit Provider Physician Assistant | DX: N39.0 Urinary tract infection, site not specified (principal); B95.7 Other staphylococcus as the cause of diseases classified elsewhere | CPT/HCPCS: 87086; 87088; 87186 ==

== ENCOUNTER → 2022-11-09 10:16 | Outpatient (CLI) | payer OTHER, SELFPAY | PROVIDERS: PCP Physician Assistant; Visit Provider Physician Assistant | DX: N20.0 Calculus of kidney (principal); B96.29 Other Escherichia coli [E. coli] as the cause of diseases classified elsewhere | CPT/HCPCS: 87086; 87088; 87186 ==

== ENCOUNTER → 2022-12-14 11:00 | Outpatient (CLI) | payer OTHER, SELFPAY ==
[2022-12-14 18:45] LABS: Basophils % 0.4 % (0.1-2.0); Eosinophils # 0.1 K/mm3 (0.0-0.4); Eosinophils % 1.6 % (0.1-12.0); Hematocrit 46.4 % (37.0-47.0); Hemoglobin 14.9 g/dL (12.2-16.2); Lymphocytes # 2.2 K/mm3 (0.7-4.5); Lymphocytes % 26.3 % (10-50); Mean Corpuscular HGB Conc 32.1 g/dL (31.8-35.4); Mean Corpuscular Hemoglobin 28.2 pg (27.0-31.2); Mean Corpuscular Volume 87.9 fl (81-99); Mean Platelet Volume 9.4 fl (7.4-10.4); Monocytes # 0.5 K/mm3 (0.1-1.0); Monocytes % 6.4 % (1.7-9.3); Neutrophils # 5.5 K/mm3 (1.8-7.8); Neutrophils % 65.2 % (37.0-80.0); Platelet Count 466 K/mm3 (142-424); Red Blood Count 5.27 M/mm3 (4.20-5.40); Red Cell Distribution Width 13.3 % (11.5-17.5); White Blood Count 8.4 K/mm3 (4.8-10.8)
[2022-12-14 19:22] LABS: Alanine Aminotransferase 17 U/L (12-78); Albumin Level 4.6 g/dl (3.5-5.0); Albumin/Globulin Ratio 1.5 (1.1-1.8); Alkaline Phosphatase 95 U/L (38-126); Anion Gap 12.9 mEq/L (5-15); Aspartate Amino Transferase 22 U/L (14-36); Bilirubin,Total 0.5 mg/dl (0.2-1.3); Blood Urea Nitrogen 16 mg/dl (7-17); Calcium 9.3 mg/dl (8.4-10.2); Carbon Dioxide 29 mmol/L (22.0-30.0); Chloride 101 mmol/L (98-107); Chol/HDL Ratio 5.4 (1-3.5); Cholesterol 220 mg/dl (140-200); Estimated Glomerular Filt Rate 105 ml/min (>60); GFR (African American) 127 ML/MIN (>60); Glucose 84 mg/dl (74-100); HDL Cholesterol 41 mg/dl (40-60); Potassium 4.9 mmoL/L (3.5-5.1); Sodium 138 mmol/L (136-145); Total Protein,Serum 7.6 g/dl (6.3-8.2); Triglycerides 149 mg/dl (30-150); VLDL Cholesterol 30 mg/dL (0-40)
[2022-12-14 19:33] LABS: Direct LDL Cholesterol 138.07 mg/dL (100-129)
[2022-12-14 19:38] LABS: Intact Parathyroid Hormone 35.6 pg/mL (7.5-53.5)
[2022-12-14 19:44] LABS: 25-OH Vitamin D, Total 31.2 ng/mL (30-100)
[2022-12-14 19:56] LABS: Thyroid Stimulating Hormone 2.59 uIU/mL (0.465-4.68)
[2022-12-14 20:15] LABS: Vitamin B12 741 pg/mL (239-931)
== END ==
PROVIDERS: PCP Physician Assistant; Visit Provider Physician Assistant
DX: M79.7 Fibromyalgia (principal); N30.11 Interstitial cystitis (chronic) with hematuria; E66.9 Obesity, unspecified; Z68.33 Body mass index [BMI] 33.0-33.9, adult; F90.9 Attention-deficit hyperactivity disorder, unspecified type; Z79.899 Other long term (current) drug therapy
CPT/HCPCS: 80053; 80061; 82306; 82607; 83970; 84443; 85025

== ENCOUNTER → 2022-12-14 23:06 | Outpatient (CLI) | payer OTHER, SELFPAY | PROVIDERS: PCP Physician Assistant; Visit Provider Physician Assistant | DX: M79.7 Fibromyalgia (principal) ==

== ENCOUNTER → 2023-04-02 14:42 | Outpatient (CLI) | payer OTHER, SELFPAY ==
--- NOTE | 2023-04-02 14:46 | CT_ITS ---
FINAL REPORT TECHNIQUE: Axial images were obtained from the lung apex to the mid abdomen by computed tomography. Coronal reformatted images were obtained. This study was performed with techniques to keep radiation doses as low as reasonably achievable, (ALARA). Individualized dose reduction techniques using automated exposure control or adjustment of mA and/or kV according to the patient''s size were employed. CLINICAL HISTORY: RLL nodule (6 mm - seen on CT from [facility] in 11/12) COMPARISON: Prior abdomen CT of 03/25/2022 FINDINGS: There is no axillary adenopathy. There is no hilar or mediastinal adenopathy. Heart size is normal. There is no pericardial or pleural effusion. There are bilateral less than 3 mm in size nonobstructing renal stones present. There is a 12 x 9 mm slightly lobulated nodule present in the right lower lobe. This was also present on the prior CT of March 25, 2022, and is considered stable. IMPRESSION: 12 x 9 mm slightly lobulated nodule present in the right lower lobe, stable since the prior CT of March,. Would recommend follow-up chest CT in 12 months to follow. Bilateral nonobstructing calcified renal stones. Reviewed, Interpreted and Dictated by Dickson Gutierrez III, MD Transcribed by Aida Haq Authenticated and [facility]
== END ==
LOC: RAD 14:42
PROVIDERS: PCP Physician Assistant; Visit Provider Physician Assistant
DX: R91.1 Solitary pulmonary nodule (principal)
CPT/HCPCS: 71250

== ENCOUNTER 2023-04-28 14:21 | Emergency (ER) | payer OTHER, SELFPAY ==
[2023-04-28 15:20] VITALS: BP 114/67; PULSE 113; RESP 20; TEMP 37.3; O2SAT 98; BMI 33.3
--- NOTE | 2023-04-28 15:34 | EXP.UTC ---
Discharge Plan Disposition Patient Disposition: Home, Self-Care Condition: Good Prescriptions Prescriptions: New cefdinir 300 mg capsule 300 mg PO BID Qty: 20 0RF No Action amitriptyline 25 mg tablet 25 mg PO DAILY Rx Instructions: TAKE 1 TABLET BY MOUTH AT BEDTIME FOR FIBROMYALGIA / ANXIETY. dextroamphetamine-amphetamine [Adderall XR] 20 mg capsule,extended release 24hr 20 mg PO DAILY etonogestrel-ethinyl estradiol [NuvaRing] 0.12-0.015 mg/24 hr ring 1 vag ring vaginal ONCE Rx Instructions: leave in place for 3 weeks of a 4-week cycle minocycline 100 mg tablet 100 mg PO DAILY Rx Instructions: TAKE 1 TABLET BY MOUTH TWICE DAILY FOR 4 MONTHS duloxetine 60 mg capsule,delayed release(DR/EC) 60 mg PO DAILY Rx Instructions: TAKE 1 CAPSULE BY MOUTH ONCE DAILY FOR MOOD Referrals Follow up/Referrals: Poonam Reynoso PA [Primary Care Provider] - See instructions Activity Restrictions/Add. Instructions Additional Instructions/Restrictions: *Monitor Temp, Over the counter Motrin or Tylenol as directed/as needed Tylenol every 4 hours and Motrin every 6 hours (as long as your family doctor has told you that you can take it) for fever or pain. and straight to ER if unable to lower temp less than 101.0 after medication given *Warm salt water gargles may help to soothe the throat *Throat Lozenges? *Warm fluids like tea with honey may help to soothe the throat? *Sleep elevated *Humidifier/Vaporizer Your throat swab was sent for culture. Those results are typically sent to your primary care. Be sure to follow up in 2-3 days with your family doctor/primary care physician if no improvement so they can review those result and treat if necessary. If you don?t have a primary care doctor, I recommend you get one but in the mean time, you will have to return to a walk in clinic Follow up IMMEDIATELY for new or worsening symptoms or no Noticeable improvement over the next 48-72 hours. 911 for difficulty breathing or swallowing Call Office in the morning to follow up with Poonam Reynoso tomorrow Straight to ER if any life threatening symptoms, abdominal pain etc Clinical Impressions Clinical Impression: UTI symptoms Sinusitis Qualifiers: Sinusitis location: unspecified location Chronicity: unspecified Qualified Code(s): J32.9 - Chronic sinusitis, unspecified Stand Alone Forms Stand Alone Forms: Work/School Release Discharge [place] H[place] [facility] [place] General Stated complaint: cold sinus Mode of Arrival: Ambulatory Source of Information: Patient Limitations: No Limitations Time Seen by Provider: 04/28/23 15:34 Description of Symptoms (Recalled from Triage Doc. by RN): PATIENT C/O COUGH, CONGESTION, HEADACHE, SINUS PRESSURE, SORE THROAT, AND BODY ACHES SINCE WEDNESDAY. ALSO C/O KIDNEY PAIN THAT STARTED YESTERDAY HEENT Symptoms (Recalled from RN notes): Yes Resp Symptoms (Recalled from RN notes): Yes Skin Symptoms (Recalled from RN notes): No MS Symptoms (Recalled from RN notes): No Functional Status (Recalled from RN notes): WNL History of Present Illness Provider Complaint: Patient states that she started feeling bad on Wednesday with sinus pain and pressure, cough, headache, sorethroat, body aches and chills States that also yesterday she felt like she was having some kidney pain so she wanted to get her urine checked Related Data Home Medications Medication Instructions Recorded Confirmed amitriptyline 25 mg tablet 25 mg PO DAILY Anxiety 04/28/23 04/28/23 dextroamphetamine-amphetamine ER 20 mg PO DAILY ADHD 04/28/23 04/28/23 20 mg 24hr capsule,extend release (Adderall XR) duloxetine 60 mg capsule,delayed 60 mg PO DAILY MOOD 04/28/23 04/28/23 release etonogestrel 0.12 mg-ethinyl 1 vag ring vaginal ONCE 04/28/23 04/28/23 estradiol 0.015 mg/24 hr vaginal Control ring (NuvaRing) minocyclin
[2023-04-28 15:35] LABS: Microscopic, Urine URINE MICROSCOPIC (MICROSCOPIC)
[2023-04-28 15:37] LABS: UTC Strep Screen (Rapid) Negative (Negative)
[2023-04-28 15:37] LABS: Appearance,Urine CLEAR (Clear); Blood, Urine 3+ (Negative); Color,Urine YELLOW (Yellow); Glucose,Urine (UA) Negative (Negative); Ketones,Urine 2+ (Negative); Leukocyte Esterase,Urine TRACE (Negative); Nitrate,Urine Negative (Negative); PH,Urine 6.5 (5.0-8.5); Protein,Urine 1+ (Negative); Specific Gravity, Urine 1.025 (1.005-1.030); Urobilinogen,Urine 0.2 EU/dl (0.2)
[2023-04-28 15:38] LABS: UTC Influenza A Antigen Negative (Negative); UTC Influenza B Antigen Negative (Negative)
[2023-04-28 15:50] VITALS: BP 114/67; PULSE 113; RESP 20; TEMP 37.3; O2SAT 98
[2023-04-28 16:14] LABS: Bacteria,Urine 1+ /lpf; Bilirubin,Urine Negative (Negative); RBC,Urine 20-50 #/hpf (0-3); Squamous Epithelial Cell,Urine 20-50 #/hpf (0-5)
== END 2023-04-28 17:56 | disposition home or self-care (01) ==
PROVIDERS: Emergency Provider Nurse Practitioner; PCP Physician Assistant
DX: J01.90 Acute sinusitis, unspecified (principal); N39.0 Urinary tract infection, site not specified; F41.9 Anxiety disorder, unspecified; F43.10 Post-traumatic stress disorder, unspecified; B96.89 Other specified bacterial agents as the cause of diseases classified elsewhere
CPT/HCPCS: 81001; 87086; 87088; 87186; 87804; 87880; 96360; 99212; 99214; G0463

== ENCOUNTER → 2023-04-29 16:50 | Outpatient (CLI) | payer OTHER, SELFPAY | PROVIDERS: PCP Physician Assistant; Visit Provider Physician Assistant | DX: R39.9 Unspecified symptoms and signs involving the genitourinary system (principal) ==

== ENCOUNTER 2023-11-17 11:26 | Outpatient (CLI) | payer OTHER, SELFPAY ==
[2023-11-17 11:35] LABS: Basophils # 0.1 K/mm3 (0-0.2); Basophils % 0.9 % (0.1-2.0); Eosinophils # 0.2 K/mm3 (0.0-0.4); Eosinophils % 2.4 % (0.1-12.0); Hematocrit 45.8 % (37.0-47.0); Hemoglobin 15.1 g/dL (12.2-16.2); Lymphocytes # 2.6 K/mm3 (0.7-4.5); Lymphocytes % 30.5 % (10-50); Mean Corpuscular HGB Conc 32.9 g/dL (31.8-35.4); Mean Corpuscular Hemoglobin 29.8 pg (27.0-31.2); Mean Corpuscular Volume 90.5 fl (81-99); Mean Platelet Volume 8.9 fl (7.4-10.4); Monocytes # 0.5 K/mm3 (0.1-1.0); Neutrophils # 5.1 K/mm3 (1.8-7.8); Neutrophils % 60.2 % (37.0-80.0); Platelet Count 369 K/mm3 (142-424); Red Blood Count 5.06 M/mm3 (4.20-5.40); Red Cell Distribution Width 13.2 % (11.5-17.5); White Blood Count 8.5 K/mm3 (4.8-10.8)
[2023-11-17 12:34] LABS: Triiodothryronine (T3) Uptake 22 % (23.5-40.5)
[2023-11-17 12:35] LABS: T4 (Thyroxine) 13.6 ug/dl (5.53-11.0)
[2023-11-17 12:43] LABS: 25-OH Vitamin D, Total 31.1 ng/mL (30-100)
[2023-11-17 12:49] LABS: Thyroid Stimulating Hormone 3.46 uIU/mL (0.465-4.68)
[2023-11-17 15:06] LABS: Chloride 108 mmol/L (98-107)
[2023-11-17 15:07] LABS: Potassium 4.3 mmoL/L (3.5-5.1); Sodium 137 mmol/L (136-145)
[2023-11-17 15:09] LABS: Alanine Aminotransferase 14 U/L (12-78); Alkaline Phosphatase 98 U/L (38-126); Anion Gap 12.3 mEq/L (5-15); Aspartate Amino Transferase 18 U/L (14-36); Bilirubin,Total 0.2 mg/dl (0.2-1.3); Blood Urea Nitrogen 14 mg/dl (7-17); Carbon Dioxide 21 mmol/L (22.0-30.0); Estimated Glomerular Filt Rate 124 ml/min (>60); GFR (African American) 150 ML/MIN (>60); Triglycerides 208 mg/dl (30-150); VLDL Cholesterol 42 mg/dL (0-40)
[2023-11-17 15:10] LABS: Albumin/Globulin Ratio 1.4 (1.1-1.8); Calcium 10.1 mg/dl (8.4-10.2); Chol/HDL Ratio 5.3 (1-3.5); Cholesterol 219 mg/dl (140-200); Globulin 2.8 g/dL (1.3-3.2); Glucose 101 mg/dl (74-100); HDL Cholesterol 41 mg/dl (40-60); Total Protein,Serum 6.8 g/dl (6.3-8.2)
[2023-11-17 15:21] LABS: Direct LDL Cholesterol 127.56 mg/dL (100-129)
[2023-11-18 09:17] LABS: Intact Parathyroid Hormone 21.5 pg/mL (7.5-53.5)
== END 2023-11-17 23:59 ==
LOC: LAB.DROPOF 11:27
PROVIDERS: PCP Physician Assistant; Visit Provider Physician Assistant
DX: M79.7 Fibromyalgia (principal); R79.89 Other specified abnormal findings of blood chemistry; R73.09 Other abnormal glucose; E66.9 Obesity, unspecified; Z68.34 Body mass index [BMI] 34.0-34.9, adult; Z79.899 Other long term (current) drug therapy
CPT/HCPCS: 80053; 80061; 82306; 83970; 84436; 84443; 84479; 85025

== ENCOUNTER 2024-01-31 13:49 | Outpatient (CLI) | payer OTHER, SELFPAY ==
--- NOTE | 2024-01-31 13:55 | US_ITS ---
FINAL REPORT CLINICAL HISTORY: Abnormal thyroid labs COMPARISON: None FINDINGS: Sonographic images of the thyroid gland were obtained. The right thyroid lobe measures 4.2 cm. in length. The left thyroid lobe measures 4.4 cm. in length. The thyroid isthmus measures 0.3 cm. The echogenicity is normal. No mass or nodule is identified. IMPRESSION: Unremarkable thyroid ultrasound. Reviewed, Interpreted and Dictated by Dickson Gutierrez III, MD Transcribed by Aida Haq Authenticated and . [facility]
== END 2024-01-31 23:59 | disposition home or self-care (01) ==
LOC: RAD 13:50
PROVIDERS: PCP Physician Assistant; Visit Provider Physician Assistant
DX: R79.89 Other specified abnormal findings of blood chemistry (principal)
CPT/HCPCS: 76536